=== PATIENT | male | born 1990 | race Caucasian/White ===

== ENCOUNTER 2018-01-23 22:59 | Emergency (ER) | payer OTHER ==
[~2018-01-23] VITALS: Ht 177.8 cm; Wt 86.2 kg
[2018-01-23] MEDS ORDERED: INHALER (23:10)
[2018-01-23] MEDS ORDERED: KETOROLAC TROMETHAMINE 30 MG INJ ONE (23:23)
[2018-01-23] MEDS ORDERED: KETOROLAC TROMETHAMINE 30 MG INJ IM ONE (23:30)
[2018-01-24] MEDS ORDERED: HYDROMORPHONE 1 MG/1 ML DISP.SYRIN IM ONE (00:15)
[2018-01-24] MEDS ORDERED: ONDANSETRON 4 MG/2 ML VIAL IM ONE (00:15)
[2018-01-24] MEDS ORDERED: HYDROMORPHONE 2 MG/1 ML DISP.SYRIN ONE (00:18)
[2018-01-24] MEDS ORDERED: ONDANSETRON 4 MG/2 ML VIAL ONE (00:18)
--- NOTE | 2018-01-24 00:25 | NUR ---
Patient discharged to home in stable conditon. Written and verbal after care instructions given. Patient verbalizes understanding of instructions. Knee immobilizer placed + crutch training provided. Pt has brother who will drive home.
[2018-01-24 00:26] VITALS: BP 122/75
== END 2018-01-24 00:26 | disposition home or self-care (01) ==
LOC: ER 23:04
DX: S89.91XA Unspecified injury of right lower leg, initial encounter (principal); J45.909 Unspecified asthma, uncomplicated; W18.30XA Fall on same level, unspecified, initial encounter; Y93.89 Activity, other specified; Y92.89 Other specified places as the place of occurrence of the external cause; Y99.8 Other external cause status
CPT/HCPCS: A4663; J1170; J1885; J2405